=== PATIENT | female | born 1950 ===

== ENCOUNTER 2017-08-10 23:03 | Emergency (ER) | payer MEDICARE, MEDICAID ==
[2017-08-10] MEDS ORDERED: Albuterol-Ipratrop 3 mg / 0.5 (3 ml) UD INH STA ×2 (23:56)
--- NOTE | 2017-08-11 00:06 | ED PDOC ---
HPI: SOB/CHF/COPD Time Seen by Provider: 08/10/17 23:25 Chief Complaint (Nursing): Shortness Of Breath History Per: Patient History/Exam Limitations: no limitations Onset/Duration Of Symptoms: Days Current Symptoms Are (Timing): Still Present Additional Complaint(s): Hx of HIV, COPD, HTN presenting with shortness of breath and chest tightness since yesterday, states it started after taking macrobid for presumed UTI yesterday, states it went away last night and returned today and did not go away. States she had fever 2 days ago to TMax 102 but none today, states she has cough but is chronic, however states she's producing more phlegm than normal since yesterday. Chills and sweats as well. Past Medical History Reviewed: Historical Data, Nursing Documentation, Vital Signs Vital Signs: Last Vital Signs Temp 98.7 F 08/10/17 23:06 Pulse 59 L 08/10/17 23:22 Resp 16 08/10/17 23:22 BP 149/94 H 08/10/17 23:06 Pulse Ox 98 08/11/17 00:08 - Medical History PMH: Anxiety, COPD, HIV, HTN, Pneumonia - Surgical History Surgical History: Tonsillectomy - Family History Family History: States: Unknown Family Hx - Home Medications Home Medications: Ambulatory Orders Medication Instructions Recorded Carvedilol [Coreg] 6.25 mg PO Q12 #0 tab 11/02/14 Montelukast [Singulair] 10 mg PO DAILY #0 tab 11/02/14 Sertraline [Zoloft] 100 mg PO DAILY #0 tab 11/02/14 Tiotropium [Spiriva] 18 mcg INH DAILY #0 cap 11/02/14 amLODIPine [Norvasc] 5 mg PO DAILY #0 tab 11/02/14 Albuterol 0.083% [Albuterol 0.083% 3 ml IH Q6H PRN 01/22/15 Inhal Elvia (2.5 mg/3 ml) UD] Darunavir Ethanolate [Prezista] 800 mg PO HS 01/22/15 Diclofenac Sodium [Voltaren Gel] 1 appl TOP DAILY PRN 01/22/15 Emtricitabine/Tenofovir Diso 1 tab PO HS 01/22/15 [Truvada 200 MG-300 MG] Fluticasone Propionate [Flonase] 2 spray SATYA DAILY PRN 01/22/15 Folic Acid 1 mg PO DAILY 01/22/15 Gabapentin [Neurontin] 300 mg PO TID 01/22/15 Hydrochlorothiazide/Valsarta 1 tab PO DAILY 01/22/15 [Diovan Hct 12.5 mg-80 mg] Hydrocortisone 2.5% (Rectal) 1 appl TOP BID PRN 01/22/15 [Anusol-HC] Multivitamin [Daily Vitamin] 1 tab PO DAILY 01/22/15 Nabumetone [Relafen] 500 mg PO DAILY PRN 01/22/15 Naproxen 500 mg PO BID PRN 01/22/15 Omeprazole [Prilosec] 20 mg PO DAILY 01/22/15 Oxycodone HCl/Acetaminophen 1 tab PO Q4H PRN 01/22/15 [Endocet 10-325 mg Tablet] Ritonavir [Norvir] 100 mg PO HS 01/22/15 diaZEpam [Valium] 5 mg PO BID PRN 01/22/15 Clindamycin HCl [Clindamycin] 300 mg PO Q6H #0 cap 01/23/15 Cyclobenzaprine [Cyclobenzaprine 10 mg PO BID #15 tab 08/11/17 HCl] predniSONE [predniSONE Tab] 60 mg PO DAILY #9 tab 08/11/17 - Allergies Allergies/Adverse Reactions: Allergies Allergy/AdvReac Type Severity Reaction Status Date / Time No Known Allergies Allergy Verified 08/10/17 23:06 Review of Systems ROS Statement: Except As Marked, All Systems Reviewed And Found Negative Constitutional: Positive for: Fever, Chills, Sweats Cardiovascular: Positive for: Chest Pain Respiratory: Positive for: Cough, Shortness of Breath Physical Exam - Reviewed Nursing Documentation Reviewed: Yes Vital Signs Reviewed: Yes - Physical Exam Appears: Positive for: Well, Non-toxic, No Acute Distress Head Exam: Positive for: ATRAUMATIC, NORMAL INSPECTION, NORMOCEPHALIC Skin: Positive for: Normal Color, Warm, DRY Eye Exam: Positive for: EOMI, Normal appearance, PERRL ENT: Positive for: Normal ENT Inspection Neck: Positive for: Normal, Painless ROM Cardiovascular/Chest: Positive for: Regular Rate, Rhythm Respiratory: Positive for: Rhonchi, Wheezing. Negative for: Respiratory Distress Gastrointestinal/Abdominal: Positive for: Normal Exam, Soft Back: Positive for: Normal Inspection Extremity: Positive for: Normal ROM Neurologic/Psych: Positive for: Alert, Oriented - Laboratory Results Result Diagrams: 08/11/17 00:18 08/11/17 00:18 - ECG ECG: Positive for: Interpreted By Me, Viewed By Me ECG Rhythm: Positive for: Normal QRS, Normal ST Segment, Sinus Rhythm O2 Sat by Pulse Oximetry: 98 Pulse Ox Interpretation: Normal Medical Decision Making Medical Decision MakinPM A/P: Hx of HIV, COPD, HTN presenting with chest pain and shortness of breath -patient speaking full sentences, no respiratory distress, well appearing -based on exam, likely copd exacerbation, but given age will get labs to exclude cardiac pathology, pna, ptx, not concerned for pe at this time -will get nebs, solumedrol, labs, cxr and re-eval 130AM -Patient feeling much better, chest tigthness alleviated, wheezing signficantly improved -patient asking for medication for parasthesia of L shoulder/arm -will advise potassium rich foods, and close followup with PMD Disposition - Clinical Impression Clinical Impression: Asthma attack - Patient ED Disposition Is Patient to be Admitted: No - Disposition Referrals: Justice Leyva MD [Primary Care Provider] - Disposition: Routine/Home Disposition Time: 01:27 Condition: STABLE Additional Instructions: Please followup with your primary care doctor in 1 - 2 days. Prescriptions: Cyclobenzaprine [Cyclobenzaprine HCl] 10 mg PO BID #15 tab predniSONE [predniSONE Tab] 60 mg PO DAILY #9 tab Instructions: Asthma, Adult (DC), Paresthesias (DC) Forms: [employer] (Stateless)
[2017-08-11 00:18] LABS: VENOUS BLOOD GAS BASE EXCESS -5.2 mmol/L (0.0-2.0); VENOUS BLOOD GAS PCO2 65 mmHg (40-60); VENOUS BLOOD GAS PO2 91 mm/Hg (30-55); VENOUS BLOOD PH 7.18 (7.32-7.43)
[2017-08-11 00:22] LABS: BASO % 0.5 % (0.0-2.0); EOS # 0.2 K/uL (0.0-0.7); EOS % 2.5 % (0.0-4.0); HEMOGLOBIN 14.9 g/dL (12.0-16.0); LYMPH # 2.2 K/uL (1.0-4.3); LYMPH % 27.8 % (20.0-40.0); MEAN CELL VOLUME 95.6 fl (81.0-99.0); MEAN CORPUSCULAR HEMOGLOBIN 32.4 pg (27.0-31.0); MEAN CORPUSCULAR HGB CONC 33.9 g/dL (33.0-37.0); MEAN PLATELET VOLUME 9.4 fl (7.2-11.7); MONO # 0.6 K/uL (0.0-0.8); MONO % 7.2 % (0.0-10.0); RBC 4.58 Mil/uL (3.80-5.20); RED CELL DISTRIBUTION WIDTH 13.4 % (11.5-14.5)
[2017-08-11 00:32] LABS: BLOOD UREA NITROGEN 19 mg/dl (7-17); CALCIUM 9.7 mg/dL (8.4-10.2); GFR AFRICAN-AMERICAN > 60; GFR NON-AFRICAN AMERICAN > 60
[2017-08-11 00:36] LABS: VENOUS BLOOD GAS BASE EXCESS 4.5 mmol/L (0.0-2.0); VENOUS BLOOD GAS PCO2 46 mmHg (40-60); VENOUS BLOOD GAS PO2 61 mm/Hg (30-55); VENOUS BLOOD PH 7.42 (7.32-7.43)
[2017-08-11 00:42] LABS: B-TYPE NATRIURETIC PEPTIDE 75.5 pg/ml (0-900)
[2017-08-11] MEDS ORDERED: Potassium Chloride 20 mEq ER Tab PO ONE ×2 (01:19→01:26)
[2017-08-11 04:13] VITALS: BP 134/86; PULSE 64; RESP 18; TEMP 98.4; O2SAT 99
--- NOTE | 2017-08-11 08:06 | RAD ---
PROCEDURE: CHEST RADIOGRAPH, 1 VIEW HISTORY: sob, cp COMPARISON: Chest radiographs 01/22/2015. FINDINGS: LUNGS: No acute airspace disease bilaterally. PLEURA: No pneumothorax or pleural fluid seen. CARDIOVASCULAR: Normal. OSSEOUS STRUCTURES: No significant abnormalities. VISUALIZED UPPER ABDOMEN: Normal. OTHER FINDINGS: None. IMPRESSION: No interval acute cardiopulmonary disease appreciated.
--- NOTE | 2017-08-11 08:17 | CARD ---
APPROVED REPORT EKG Measurement Heart [id number] <Conclusion> Sinus bradycardia Otherwise normal ECG
== END 2017-08-11 01:35 | disposition home or self-care (01) ==
LOC: H.ER 23:03
DX: J45.901 Unspecified asthma with (acute) exacerbation (principal); F41.9 Anxiety disorder, unspecified; I10 Essential (primary) hypertension; J44.9 Chronic obstructive pulmonary disease, unspecified
CPT/HCPCS: 71045; 80048; 81025; 82803; 83880; 84484; 85025; 93005; 94640; 96374; 99284; J2930

== ENCOUNTER 2018-06-21 08:56 | Day surgery (SDC) | payer MEDICARE, MEDICAID ==
[2018-06-15 16:11] VITALS: BMI 24.4
[2018-06-21] MEDS ORDERED: Tropicamide 1% Opht 150 DROP/15 ML OD ONE (09:15)
[2018-06-21] MEDS ORDERED: Maxitrol Opht Susp ONE (09:16)
[2018-06-21] MEDS ORDERED: Lidocaine 1% 20 MG/2 ML PF AMP ONE (09:17)
[2018-06-21] MEDS ORDERED: Tetracaine 0.5% Ophth 2 ML BOTTLE ONE (09:17)
[2018-06-21] MEDS ORDERED: EPINEPHrine 1 mg/ml (1:1000) Inj ONE (09:17)
[2018-06-21] MEDS ORDERED: STERILE IRRIGATING SOLUTION 15 ML IR ONE (09:18)
[2018-06-21] MEDS ORDERED: Chondroitin/Hyaluronate Opth Syringe KIT (0.55 ml-0.5 ml) IO ONE (09:18)
[2018-06-21] MEDS ORDERED: CA CL/K CL/NA CL 500 ML IR ONE (09:18)
[2018-06-21] MEDS ORDERED: Carbachol 0.01% IO ONE (09:18)
[2018-06-21] MEDS ORDERED: Pilocarpine 1% Opht Soln ONE (09:18)
[2018-06-21] MEDS ORDERED: Povidone Iodine 5% Opht SOLUTION ONE (09:18)
[2018-06-21] MEDS ORDERED: Flurbiprofen 0.03% Opht SOLN OD ONE (09:30)
[2018-06-21] MEDS ORDERED: Phenylephrine 2.5% Opht Soln OD ONE (09:30)
[2018-06-21 09:47] VITALS: BP 153/81; PULSE 66; RESP 18; TEMP 98.4; O2SAT 97
== END 2018-06-21 10:20 | disposition home or self-care (01) ==
LOC: H.OPSURG 08:56
PROVIDERS: ATTEND Ophthalmology
DX: H25.11 Age-related nuclear cataract, right eye (principal)
CPT/HCPCS: 66984; J0171

== ENCOUNTER 2018-07-05 08:59 | Day surgery (SDC) | payer MEDICARE, MEDICAID ==
[2018-07-05 09:05] VITALS: BMI 23.6
[2018-07-05] MEDS ORDERED: Tropicamide 1% Opht 150 DROP/15 ML OD ONE ×2 (09:11→09:20)
[2018-07-05] MEDS ORDERED: Phenylephrine 2.5% Opht Soln OD ONE ×2 (09:11→09:20)
[2018-07-05] MEDS ORDERED: Flurbiprofen 0.03% Opht SOLN OD ONE ×2 (09:11→09:20)
[2018-07-05] MEDS ORDERED: Maxitrol Opht Susp ONE (09:44)
[2018-07-05] MEDS ORDERED: EPINEPHrine 1 mg/ml (1:1000) Inj ONE (09:44)
[2018-07-05] MEDS ORDERED: CA CL/K CL/NA CL 500 ML IR ONE (09:45)
[2018-07-05] MEDS ORDERED: Pilocarpine 1% Opht Soln ONE (09:45)
[2018-07-05] MEDS ORDERED: Lidocaine 1% 20 MG/2 ML PF AMP ONE (09:45)
[2018-07-05] MEDS ORDERED: Tetracaine 0.5% Ophth 2 ML BOTTLE ONE (09:45)
[2018-07-05] MEDS ORDERED: Chondroitin/Hyaluronate Opth Syringe KIT (0.55 ml-0.5 ml) IO ONE ×2 (09:46→12:49)
[2018-07-05] MEDS ORDERED: Carbachol 0.01% IO ONE ×2 (09:46→12:53)
[2018-07-05] MEDS ORDERED: Povidone Iodine 5% Opht SOLUTION ONE (09:46)
[2018-07-05] MEDS ORDERED: STERILE IRRIGATING SOLUTION 45 ML IR ONE (09:46)
[2018-07-05 09:54] VITALS: RESP 16; O2SAT 98
[2018-07-05] MEDS ORDERED: Midazolam 2 MG/2 ML VIAL ONE (12:34)
[2018-07-05] MEDS ORDERED: Lactated Ringer's 1,000 ML IV ONE (12:35)
[2018-07-05] MEDS ORDERED: BSS 15 ML SOL IR ONE (12:50)
[2018-07-05] MEDS ORDERED: Pilocarpine 1% Opht Soln OD ONE (12:55)
[2018-07-05] MEDS ORDERED: Maxitrol Opht Susp OD ONE (12:57)
[2018-07-05 13:23] VITALS: BP 127/80; PULSE 60; TEMP 98.2
--- NOTE | 2018-07-06 08:03 | OP ---
PROCEDURE DATE: 07/05/2018 SURGEON: CAROLINE SINGH MD ANESTHESIOLOGIST: BARBARA WILEY MD; PRAKASH WHITAKER MD ANESTHESIA: LOCAL / IV SEDATION PREOPERATIVE DIAGNOSIS: CATARACT RIGHT EYE. POSTOPERATIVE DIAGNOSIS: CATARACT RIGHT EYE. OPERATION: CLEAR CORNEAL PHACOEMULSIFICATION WITH LENS IMPLANT RIGHT EYE. PREPARATION AND PROCEDURE: After the patient was prepped and draped in the usual manner for sterile ophthalmic surgery, local IV sedation was administered; eye seals were applied to the upper and lower lid margins and an adult wire lid speculum was placed within the lids. Under microsurgical control, a two-step clear corneal incision was made into the anterior chamber. The initial incision was perpendicular to the corneal plane. The second incision with the keratome was placed at a 45-degree angle to the first incision. One cc of one percent Xylocaine MPF was instilled into the anterior chamber to achieve proper intraocular anesthesia. At this time, the Viscoelastic was injected into the anterior chamber for protection of the endothelium and for maintenance of the chamber depth. A 360-degree continuous curvilinear capsulorrhexis was performed using a pre-bent 25-gauge needle. Hydrodissection and hydrodelineation were performed using a Fraga cannula and balanced salt solution. Utilizing the tip of the Fraga cannula, the nucleus was rotated freely within the capsular bag. A standard one-handed phacoemulsification was utilized at this time for sculpting and rotating of the nucleus. The nucleus was fragmented in its entirety and aspirated without any consequence. A standard I&A was carried out for the residual cortical material. No residual material was noted within the capsular bag. The posterior capsule was noted to be clear. Additional Viscoelastic was injected into the capsular bag in preparation for lens implantation. After this has been satisfactorily achieved the intraocular lens injected through the corneal incision into the capsular bag. The intraocular lens was manipulated until it was properly oriented and the Viscoelastic was evacuated from the capsular bag and anterior chamber. The anterior chamber was reformed with balanced salt solution. The corneal incision was irrigated with BSS. The intraocular pressure was found to be within normal limits. This terminated the procedure. The speculum and lid drapes were removed. TobraDex ophthalmic suspension and Pilocarpine 1% drops one drop was applied to the eye. POSTOPERATIVE CONDITION: The patient was brought to the Post anesthesia Recovery area with stable vital signs. DCAROLINE OLMSTEAD MD
== END 2018-07-05 15:00 | disposition home or self-care (01) ==
LOC: H.OPSURG 08:59
PROVIDERS: ATTEND Ophthalmology
DX: H25.12 Age-related nuclear cataract, left eye (principal)
CPT/HCPCS: 66984; J0171; J2250; J3010; J7120